=== PATIENT | female | born 1975 | race Caucasian/White ===

== ENCOUNTER 2017-10-01 22:57 | Observation (INO) | payer BC ==
[~2017-10-01] VITALS: Ht 162.6 cm; Wt 85.5 kg
[2017-10-01 23:16] LABS: BASO # 0.1 (0.0-0.2); BASO % 0.6 % (0.0-2.0); GRAN # 8.8 (1.4-6.5); GRAN % 66.2 % (42.2-75.2); HEMATOCRIT 42.5 % (37.0-47.0); LYMPH # 3.3 (1.2-3.4); MEAN CELL VOLUME 84 fl (80.0-100.0); MEAN CORPUSCULAR HEMOGLOBIN 30 pg (27.0-31.0); MEAN CORPUSCULAR HGB CONC 35 g/dl (33.0-37.0); MEAN PLATELET VOLUME 9.8 fl (7.4-10.4); MONO % 7.9 % (1.7-9.3); PLATELET COUNT 317 K/mm3 (130-400); RED BLOOD COUNT 5.06 M/mm3 (4.10-5.30); REDCELL DISTRIBUTION WIDTH-CV 12.6 % (11.5-14.5)
[2017-10-01] MEDS ORDERED: SYNTHROID0.175 MG PO (23:16)
[2017-10-01 23:41] LABS: ALBUMIN 4.2 gm/dL (3.5-5.0); BILIRUBIN,TOTAL 1.2 mg/dL (0.0-1.0); C-REACTIVE PROTEIN 0.7 mg/dL (0.0-0.9); CALCIUM 9.3 mg/dL (8.4-10.2); CREATININE, serum 0.47 mg/dL (0.52-1.25)
[2017-10-01 23:44] LABS: COLLECTION METHOD CLEAN CATCH
[2017-10-01 23:49] LABS: PH 5 (5-8); SQUAMOUS EPITHELIAL None Seen /hpf; URINE APPEARANCE Clear; URINE BACTERIA None Seen /hpf; URINE BILIRUBIN Negative (NEGATIVE); URINE BLOOD 1+ (NEGATIVE); URINE COLOR Yellow; URINE GLUCOSE Negative (NEGATIVE); URINE KETONE Negative (NEGATIVE); URINE LEUKOCYTE ESTERASE Negative (NEGATIVE); URINE NITRATE Negative (NEGATIVE); URINE PROTEIN(semi-quant) Negative (NEGATIVE); URINE RBC 0-2 /hpf; URINE UROBILINOGEN Negative (NEGATIVE)
[2017-10-02] VITALS (14 sets, daily range): BP systolic 100–130; BP diastolic 61–90; PULSE 67–104; TEMP 97.6–98.7
[2017-10-03 00:02] VITALS: BP 120/70; PULSE 90; TEMP 98.1
[2017-10-03 04:37] VITALS: BP 90/58; PULSE 80; TEMP 98.2
[2017-10-03 06:56] LABS: BASO % 0.3 % (0.0-2.0); GRAN # 11.5 (1.4-6.5); GRAN % 82.8 % (42.2-75.2); LYMPH # 1.4 (1.2-3.4); LYMPH % 10.2 % (20.0-51.0); MEAN CELL VOLUME 87 fl (80.0-100.0); MEAN CORPUSCULAR HGB CONC 35 g/dl (33.0-37.0); MEAN PLATELET VOLUME 10.3 fl (7.4-10.4); MONO # 0.9 (0.1-0.6); MONO % 6.3 % (1.7-9.3); PLATELET COUNT 267 K/mm3 (130-400); RED BLOOD COUNT 4.14 M/mm3 (4.10-5.30); REDCELL DISTRIBUTION WIDTH-CV 12.5 % (11.5-14.5)
[2017-10-03 07:04] LABS: HEMATOCRIT 35.9 % (37.0-47.0); HEMOGLOBIN 12.5 g/dl (12.5-16.0); MEAN CORPUSCULAR HEMOGLOBIN 30 pg (27.0-31.0)
[2017-10-03 08:42] VITALS: BP 107/64; PULSE 80; TEMP 97.5
[2017-10-03 12:04] VITALS: BP 107/57; PULSE 75; TEMP 97.6
== END 2017-10-03 16:05 | disposition home or self-care (01) ==
LOC: COL.ER 22:57 → SURG 10-02 00:31
PROVIDERS: Family Medicine; Surgery
DX: K35.3 Acute appendicitis with localized peritonitis (principal); K36 Other appendicitis; S36.409A Unspecified injury of unspecified part of small intestine, initial encounter; K66.0 Peritoneal adhesions (postprocedural) (postinfection); Z85.850 Personal history of malignant neoplasm of thyroid; Z87.891 Personal history of nicotine dependence; K35.80 Unspecified acute appendicitis
CPT/HCPCS: G0378; J1100; J1170; J1885; J2270; J2405; J2543; J2704; J2710; J3010; J7030; J7050; J7120; Q9967

== ENCOUNTER → 2017-10-14 | Outpatient (CLI) | payer BC ==
[~2017-10-14] MED LIST: SYNTHROID0.175 MG PO
[2017-10-14 14:21] LABS: BASO # 0.1 (0.0-0.2); BASO % 1.4 % (0.0-2.0); GRAN # 5.2 (1.4-6.5); GRAN % 61.6 % (42.2-75.2); HEMATOCRIT 41.7 % (37.0-47.0); HEMOGLOBIN 14.3 g/dl (12.5-16.0); LYMPH # 2.4 (1.2-3.4); LYMPH % 28.4 % (20.0-51.0); MEAN CELL VOLUME 87 fl (80.0-100.0); MEAN CORPUSCULAR HEMOGLOBIN 30 pg (27.0-31.0); MEAN CORPUSCULAR HGB CONC 34 g/dl (33.0-37.0); MEAN PLATELET VOLUME 9.9 fl (7.4-10.4); MONO # 0.7 (0.1-0.6); MONO % 8.2 % (1.7-9.3); PLATELET COUNT 372 K/mm3 (130-400); RED BLOOD COUNT 4.81 M/mm3 (4.10-5.30); REDCELL DISTRIBUTION WIDTH-CV 12.5 % (11.5-14.5)
[2017-10-14 14:30] LABS: CALCIUM 9.5 mg/dL (8.4-10.2); CHOLESTEROL RISK RATIO 4.7; CREATININE, serum 0.49 mg/dL (0.52-1.25); POTASSIUM 4.1 mmol/L (3.4-5.0); TOTAL PROTEIN 8.2 gm/dL (6.4-8.2)
[2017-10-14 14:59] LABS: TSH w REFLEX 0.015 uIU/mL (0.465-4.680)
== END ==
LOC: COL.LAB 11:09
PROVIDERS: Family Medicine
DX: Z13.1 Encounter for screening for diabetes mellitus (principal); Z13.220 Encounter for screening for lipoid disorders; E03.9 Hypothyroidism, unspecified; R74.0 Nonspecific elevation of levels of transaminase and lactic acid dehydrogenase [LDH]

== ENCOUNTER 2019-01-15 19:15 | Emergency (ER) | payer BC ==
[~2019-01-15] VITALS: Ht 162.6 cm; Wt 86.4 kg
[2019-01-15 19:18] VITALS: TEMP 98.7
[2019-01-15] MEDS ORDERED: SYNTHROID0.05 MG/TA PO (19:29)
[2019-01-15 20:18] LABS: COLLECTION METHOD CLEAN CATCH
[2019-01-15 20:25] LABS: BASO # 0.1 (0.0-0.2); BASO % 0.7 % (0.0-2.0); GRAN # 5.1 (1.4-6.5); GRAN % 50.8 % (42.2-75.2); HEMATOCRIT 38.8 % (37.0-47.0); HEMOGLOBIN 13.6 g/dl (12.5-16.0); LYMPH # 3.9 (1.2-3.4); LYMPH % 38.4 % (20.0-51.0); MEAN CELL VOLUME 86 fl (80.0-100.0); MEAN CORPUSCULAR HEMOGLOBIN 30 pg (27.0-31.0); MEAN CORPUSCULAR HGB CONC 35 g/dl (33.0-37.0); MEAN PLATELET VOLUME 9.8 fl (7.4-10.4); MONO % 9.8 % (1.7-9.3); PLATELET COUNT 299 K/mm3 (130-400); RED BLOOD COUNT 4.53 M/mm3 (4.10-5.30); REDCELL DISTRIBUTION WIDTH-CV 12.8 % (11.5-14.5)
[2019-01-15 20:33] LABS: PH 7 (5-8); SQUAMOUS EPITHELIAL 0-2 /hpf; URINE APPEARANCE Clear; URINE BACTERIA None Seen /hpf; URINE BILIRUBIN Negative (NEGATIVE); URINE BLOOD 1+ (NEGATIVE); URINE COLOR Straw; URINE GLUCOSE Negative (NEGATIVE); URINE KETONE Negative (NEGATIVE); URINE LEUKOCYTE ESTERASE Negative (NEGATIVE); URINE NITRATE Negative (NEGATIVE); URINE PROTEIN(semi-quant) Negative (NEGATIVE); URINE RBC 0-2 /hpf; URINE UROBILINOGEN Negative (NEGATIVE)
[2019-01-15 20:34] LABS: ALANINE AMINOTRANSFERASE 28 U/L (9-52); ALBUMIN 4.2 gm/dL (3.5-5.0); ALKALINE PHOSPHATASE 133 U/L (50-136); ANION GAP 9 mmol/L (7-16); AST,SGOT 40 U/L (15-37); BILIRUBIN,TOTAL 0.6 mg/dL (0.0-1.0); BLOOD UREA NITROGEN 11 mg/dL (7-17); C-REACTIVE PROTEIN 0.6 mg/dL (0.0-0.9); CALCIUM 9.2 mg/dL (8.4-10.2); CARBON DIOXIDE 27 mmol/L (22-30); CHLORIDE 104 mmol/L (98-107); CREATININE, serum 0.36 (0.52-1.25); GLUCOSE 84 mg/dL (74-106); MAGNESIUM 1.7 mg/dL (1.6-2.3); POTASSIUM 3.7 mmol/L (3.4-5.0); SODIUM 139 mmol/L (137-145); TOTAL PROTEIN 7.5 gm/dL (6.4-8.2)
[2019-01-15 20:47] LABS: TROPONIN-I < 0.012 ng/mL (0.000-0.035)
[2019-01-15] MEDS ORDERED: NAPROXEN 3375 MG/TAB PO (22:00)
[2019-01-15] MEDS ORDERED: VALIUM 5MG T5 MG/TAB PO (22:00)
[2019-01-15 23:15] VITALS: BP 118/65; PULSE 80
== END 2019-01-15 23:00 | disposition home or self-care (01) ==
LOC: COL.ER 19:15
PROVIDERS: Emergency Medicine
DX: M54.12 Radiculopathy, cervical region (principal)
CPT/HCPCS: J0780; J1885; J3360; J7030

== ENCOUNTER → 2020-02-07 | Outpatient (CLI) | payer OTHER, BC ==
[~2020-02-07] MED LIST changes: +NAPROXEN 3375 MG/TAB PO; +SYNTHROID0.05 MG/TA PO; +VALIUM 5MG T5 MG/TAB PO
[2020-02-07 08:23] LABS: BASO # 0.1 (0.0-0.2); BASO % 1.3 % (0.0-2.0); GRAN % 60.6 % (42.2-75.2); HEMATOCRIT 43.5 % (37.0-47.0); LYMPH % 29.3 % (20.0-51.0); MEAN CELL VOLUME 87 fl (80.0-100.0); MEAN CORPUSCULAR HEMOGLOBIN 30 pg (27.0-31.0); MEAN CORPUSCULAR HGB CONC 35 g/dl (33.0-37.0); MEAN PLATELET VOLUME 10.4 fl (7.4-10.4); MONO # 0.6 (0.1-0.6); MONO % 8.5 % (1.7-9.3); PLATELET COUNT 293 K/mm3 (130-400); REDCELL DISTRIBUTION WIDTH-CV 12.7 % (11.5-14.5)
[2020-02-07 08:26] LABS: ALANINE AMINOTRANSFERASE 104 U/L (4-34); ALBUMIN 4.3 gm/dL (3.5-5.0); ALKALINE PHOSPHATASE 126 U/L (50-136); ANION GAP 8 mmol/L (7-16); AST,SGOT 72 U/L (15-37); BILIRUBIN,TOTAL 1.4 mg/dL (0.0-1.0); BLOOD UREA NITROGEN 12 mg/dL (7-17); CALCIUM 8.7 mg/dL (8.4-10.2); CARBON DIOXIDE 28 mmol/L (22-30); CHLORIDE 99 mmol/L (98-107); CHOLESTEROL 169 mg/dL (120-200); CHOLESTEROL RISK RATIO 4.4; CREATININE, serum 0.41 (0.52-1.25); GLUCOSE 294 mg/dL (74-106); HDL CHOLESTEROL 38 mg/dL; LDL CHOLESTEROL 79 mg/dL; POTASSIUM 4.1 mmol/L (3.4-5.0); SODIUM 135 mmol/L (137-145); TOTAL PROTEIN 7.7 gm/dL (6.4-8.2); TRIGLYCERIDE 261 mg/dL
[2020-02-07 09:03] LABS: THYROID STIMULATING HORMONE < 0.015 uIU/mL (0.465-4.680)
== END ==
LOC: COL.LAB 07:40
PROVIDERS: Physician Assistant
DX: L30.9 Dermatitis, unspecified (principal); R73.03 Prediabetes; E03.9 Hypothyroidism, unspecified; Z85.850 Personal history of malignant neoplasm of thyroid; Z76.89 Persons encountering health services in other specified circumstances

== ENCOUNTER 2020-03-12 08:07 | Outpatient (RCR) | payer OTHER ==
[~2020-03-12 08:07] MED LIST changes: +AMOXICILLIN 8751 TAB PO; +NORCO 325 MG-51 TAB PO
== END 2020-04-17 15:27 | disposition home or self-care (01) ==
LOC: WSOH 08:07
DX: N93.9 Abnormal uterine and vaginal bleeding, unspecified (principal); N80.9 Endometriosis, unspecified; E03.9 Hypothyroidism, unspecified; K57.32 Diverticulitis of large intestine without perforation or abscess without bleeding; Z90.710 Acquired absence of both cervix and uterus; Z90.89 Acquired absence of other organs; Z87.891 Personal history of nicotine dependence; Y99.0 Civilian activity done for income or pay

== ENCOUNTER → 2020-11-25 | Outpatient (REF) | LOC: COL.LAB 08:22 | DX: Z20.822 Contact with and (suspected) exposure to COVID-19 (principal) ==

== ENCOUNTER → 2021-06-25 | Outpatient (CLI) | payer OTHER | LOC: DIA.ED 10:04 | DX: E11.65 Type 2 diabetes mellitus with hyperglycemia (principal); Z79.84 Long term (current) use of oral hypoglycemic drugs | CPT/HCPCS: G0108 ==

== ENCOUNTER → 2021-11-19 | Outpatient (CLI) | payer OTHER | LOC: COL.LAB 08:51 | DX: C73 Malignant neoplasm of thyroid gland (principal) ==

== ENCOUNTER → 2021-12-31 | Outpatient (CLI) | payer OTHER | LOC: COL.PUL 11:59 | DX: R06.02 Shortness of breath (principal) ==

== ENCOUNTER → 2022-01-02 | Outpatient (CLI) | payer OTHER | LOC: COL.VAS 09:23 | DX: R06.02 Shortness of breath (principal); R06.00 Dyspnea, unspecified | CPT/HCPCS: Q9967 ==